=== PATIENT | male | born 1975 | race African-American/Black ===

== ENCOUNTER 2017-05-27 16:04 | Outpatient (CLI) ==
[2017-06-01 19:11] LABS: IGG P18 AB Absent (.); IGG P23 AB Absent (.); IGG P28 AB Absent (.); IGG P30 AB Absent (.); IGG P39 AB Absent (.); IGG P41 AB Present (.); IGG P45 AB Absent (.); IGG P58 AB Present (.); IGG P66 AB Absent (.); IGG P93 AB Absent (.); IGM P39 AB Absent (.); IGM P41 AB Absent (.); LYME IGG WB INTERP Negative (.); LYME IGM WB INTERP Negative (.)
== END 2017-05-27 16:05 | disposition home or self-care (01) ==
LOC: LAB 16:04
PROVIDERS: ATTEND Nurse Practitioner Family
DX: R53.83 Other fatigue (principal); W57.XXXA Bitten or stung by nonvenomous insect and other nonvenomous arthropods, initial encounter
CPT/HCPCS: 36415; 86617; 86757; 87798

== ENCOUNTER 2017-10-19 23:01 | Emergency (ER) ==
[2017-10-19 23:08] VITALS: BP 150/97; TEMP 98.4; BMI 30.5
[2017-10-19] MEDS ORDERED: TETRACAINE 0.5% OPTH SOL OP STA (23:13)
[2017-10-19] MEDS ORDERED: TETRACAINE 0.5% UNIT-DOSE OP ONE (23:14)
[2017-10-19] MEDS ORDERED: FLUORETS OP STA (23:18)
[2017-10-19] MEDS ORDERED: [UNRECOGNIZED DRUG - OTHER] OP ONE (23:19)
[2017-10-19] MEDS ORDERED: EYE-STREAM OP ONE (23:19)
[2017-10-19] MEDS ORDERED: OPTH OP STA (23:21)
[2017-10-19] MEDS ORDERED: CYCLOGYL 1% OP STA (23:21)
[2017-10-19] MEDS ORDERED: FLUORETS OP ONE (23:23)
[2017-10-19] MEDS ORDERED: ZOFRAN 4 MG/2 ML IM STA (23:28)
[2017-10-19] MEDS ORDERED: MORPHINE 2 MG/ML SYRINGE IM STA (23:28)
--- NOTE | 2017-10-19 23:32 | ED.PDOC ---
General ED Provider: Dr. SHYANN BACK-ER Chief Complaint: Eye Problem Stated Complaint: i was wearing a ponce to weld--i think it had a hole in it Time Seen by Physician: 23:30 Mode of Arrival: Walk-In Information Source: Patient Exam Limitations: No limitations Nursing and Triage Documentation Reviewed and Agree: Yes Reviewed sepsis parameters & appropriate labs ordered?: Yes System Inflammatory Response Syndrome: Not Applicable Sepsis Protocol: For patient's 13 years and over: Temp is 96.8 and below OR 101 and greater Pulse >90 BPM Resp >20/minute Acutely Altered Mental Status Are patient's symptoms suggestive of a new infection, such as: -Pneumonia -Skin, Soft Tissue -Endocarditis -UTI -Bone, Joint Infection -Implantable Device -Acute Abdominal Infection -Wound Infection -Meningitis -Blood Stream Catheter Infection -Unknown EENT Complaint Exam - Eye Complaint/Exam Onset/Duration: several mos Symptoms Are: Still present Timing: Constant Initial Severity: Mild Current Severity: Moderate Location: Bilateral Character: Reports: Dull, Throbbing Aggravating: Reports: Light Alleviating: Reports: None Associated Signs and Symptoms: Reports: Photophobia. Denies: Clear drainage, Purulent drainage, Vision impairment, Fever, Swelling Related History: Reports: Trauma Eye Surgical History: Reports: None Penetrating Injury Risk Factors: None Globe Rupture Risk Factors: None Acute Glaucoma Risk Factors: None Optic Artery Occlusion Risk Factors: None Visual Field: Normal Extraocular Movement: Normal Orbit Findings: Normal Globe Findings: Intact Lid Findings: Normal Conjunctival Findings: Red Corneal Findings: Clear Fluorescein Uptake: No Fundi: Normal Slit Lamp Used: No Differential Diagnoses: Keratitis Review of Systems - Review Of Systems Constitutional: Reports: No symptoms Eyes: Reports: Inflammation, Pain, Photophobia Ears, Nose, Mouth, Throat: Reports: No symptoms Respiratory: Reports: No symptoms Cardiac: Reports: No symptoms GI: Reports: No symptoms : Reports: No symptoms Musculoskeletal: Reports: No symptoms Skin: Reports: No symptoms Neurological: Reports: No symptoms Endocrine: Reports: No symptoms Hematologic/Lymphatic: Reports: No symptoms All Other Systems: Reviewed and Negative Past Medical History - Past Medical History Previously Healthy: No Endocrine: Reports: Unknown Cardiovascular: Reports: Unknown Respiratory: Reports: Unknown Hematological: Reports: Unknown Gastrointestinal: Reports: Unknown Genitourinary: Reports: Unknown Neuro/Psych: Reports: Unknown Musculoskeletal: Reports: Unknown Cancer: Reports: Unknown - Surgical History General Surgical History: Reports: Unknown - Family History Family History: Reports: Unknown - Social History Smoking Status: Current every day smoker, Heavy tobacco smoker Hx Substance Use: No Alcohol Screening: Occasionally - Immunizations Tetanus Shot up to Date: Yes Physical Exam - Physical Exam Appearance: Well-appearing, No pain distress, Well-nourished Pain Distress: Moderate Eyes: EDWARD, EOMI, Conjunctiva inflammed ENT: Ears normal, Nose normal, Oropharynx normal Neck: Supple Respiratory: Airway patent, Breath sounds clear, Breath sounds equal, Respirations nonlabored Cardiovascular: RRR GI/: Soft, Nontender, No masses, Bowel sounds normal, No Organomegaly Musculoskeletal: Normal strength, ROM intact, No edema, No calf tenderness Skin: Warm, Dry, Normal color Neurological: Sensation intact, Motor intact, Reflexes intact, Cranial nerves intact, Alert, Oriented Psychiatric: Affect appropriate, Mood appropriate, Anxious Critical Care Note - Critical Care Note Total Time (mins): 0 Course - Course Orders, Labs, Meds: Orders Category Date Time Status Balanced Salt Solution [Eye-Stream] MEDS 10/19/17 23:19 Discontinued 1 bottle OP .STK-MED ONE Benoxinate/Fluores Opth Susan [Fluorescein-Benoxinate MEDS 10/19/17 23:19 Discontinued Opth Susan] 1 drop OP .STK-MED ONE Cyclopentolate HCl Opth [Cyclogyl 1% Opth] MEDS 10/19/17 23:21 Stat 1 drop OP ONCE STA Fluorescein Sodium [Fluorets] MEDS 10/19/17 23:23 Discontinued 1 strip OP .STK-MED ONE Fluorescein Sodium [Fluorets] MEDS 10/19/17 23:18 Stat 1 strip OP ONCE STA Morphine Sulfate [Morphine 2 mg/ml Syringe] MEDS 10/19/17 23:28 Stat 4 mg IM ONCE STA Ondansetron HCl/Pf [Zofran 4 mg/2 ml] MEDS 10/19/17 23:28 Stat 4 mg IM ONCE STA Tetracaine HCl [Tetracaine 0.5% Opth Susan] MEDS 10/19/17 23:13 Discontinued 2 drop OP ONCE STA Tetracaine HCl/Pf [Tetracaine 0.5% Unit-Dose] MEDS 10/19/17 23:14 Discontinued 1 drop OP .STK-MED ONE Medications Discontinued Medications Generic Name Dose Route Start Last Admin Trade Name Alia PRN Reason Stop Dose Admin Tetracaine HCl 2 drop 10/19/17 23:13 Tetracaine 0.5% Opth Susan OP 10/19/17 23:14 ONCE STA Vital Signs: Temp Pulse Resp BP Pulse Ox 10/19/17 23:02 98.4 F 79 20 150/97 H 95 Departure - Departure Time of Disposition: 23:32 Disposition: HOME SELF-CARE Discharge Problem: Keratitis Instructions: Corneal Flash Castro (ED) Condition: Good Pt referred to PMD for follow-up: Yes IPMP verified?: No Additional Instructions: keep out of light--wear sunglasses--continue antbx drops--ultram 50mg 1-2 tabs q 6hrs prn pain #10---f/u with your eye doctor tomorrow Allergies/Adverse Reactions: Allergies acetaminophen [From Tylenol] Allergy (Severe, Verified 10/19/17 23:08) swelling Home Medications: Ambulatory Orders Esomeprazole Magnesium [Nexium] 20 mg PO DAILY 05/27/17 Disposition Discussed With: Patient
[2017-10-20] MEDS ORDERED: TORADOL IM STA (00:39)
[2017-10-20] MEDS ORDERED: DILAUDID 1 MG/ML SYRINGE IM STA (00:39)
== END 2017-10-20 01:54 | disposition home or self-care (01) ==
LOC: ED 23:01
DX: H16.133 Photokeratitis, bilateral (principal); W89.8XXA Exposure to other man-made visible and ultraviolet light, initial encounter
CPT/HCPCS: 96372; 99283